=== PATIENT | female | born 1955 | race Caucasian/White ===

== ENCOUNTER 2017-11-11 12:16 | Emergency (ER) | payer OTHER ==
[2017-11-11] MEDS ORDERED: NYSTATIN 100,000UNIT/GM CREAM 30 GM TUBE TOPICAL STA (12:52)
--- NOTE | 2017-11-11 12:59 | ED ---
Psych HPI - General Chief Complaint: Psychiatric Symptoms Stated Complaint: MENTAL HEALTH Time Seen by Provider: 11/11/17 12:42 Source: patient Mode of arrival: EMS - History of Present Illness Initial Comments: 62-year-old female patient presents to the emergency department today with complaints of racing thoughts. States that she has been feeling like she wants drink alcohol. States that she is a recovering alcoholic, last drink was 2016. She states that over the last week she has been constantly thinking about drinking. She states that all of her close contacts drink alcohol and she feels left out. She states that she needs help to get her mind right. She denies any suicidal or homicidal ideation. She denies any hallucinations. States she is sleeping well. She states that overall she feels well however she does have a rash to the area between her breasts. She states that this started when she started wearing a bra. She states that the area is burning however it is not pruritic. Patient denies any recent fever, chills, shortness breath, chest pain, abdominal pain, nausea, vomiting, diarrhea, constipation, back pain, numbness, tingling, dizziness, weakness, hematuria, dysuria, urinary urgency, urinary frequency, headache, visual changes, or any other complaints. - Related Data Home Medications Medication Instructions Recorded Confirmed Desvenlafaxine Succinate [Pristiq 100 mg PO DAILY 01/30/16 11/11/17 ER] risperiDONE [RisperDAL] 2 mg PO HS 01/30/16 11/11/17 Naltrexone HCl [Revia] 50 mg PO DAILY 11/11/17 11/11/17 hydrOXYzine PAMOATE [hydrOXYzine 25 mg PO TID 11/11/17 11/11/17 PAMOATE] Allergies Allergy/AdvReac Type Severity Reaction Status Date / Time aspirin Allergy Rash/Hives Verified 11/11/17 12:34 Penicillins Allergy Rash/Hives Verified 11/11/17 12:34 Review of Systems ROS Statement: Those systems with pertinent positive or pertinent negative responses have been documented in the HPI. ROS Other: All systems not noted in ROS Statement are negative. Past Medical History Past Medical History: Asthma, COPD Additional Past Medical History / Comment(s): back pain History of Any Multi-Drug Resistant Organisms: None Reported Past Surgical History: Back Surgery, Joint Replacement, Orthopedic Surgery Additional Past Surgical History / Comment(s): knee replacement Past Psychological History: Anxiety, Depression Smoking Status: Current every day smoker Past Alcohol Use History: None Reported Past Drug Use History: None Reported General Exam Limitations: no limitations General appearance: alert, in no apparent distress, other (This is a well- developed, well-nourished adult female patient in no acute distress.) Eye exam: Present: normal appearance, PERRL, EOMI. Absent: scleral icterus, conjunctival injection, periorbital swelling ENT exam: Present: normal exam, normal oropharynx, mucous membranes moist Respiratory exam: Present: normal lung sounds bilaterally. Absent: respiratory distress, wheezes, rales, rhonchi, stridor Cardiovascular Exam: Present: regular rate, normal rhythm, normal heart sounds. Absent: systolic murmur, diastolic murmur, rubs, gallop, clicks GI/Abdominal exam: Present: soft, normal bowel sounds. Absent: distended, tenderness, guarding, rebound, rigid Neurological exam: Present: alert, oriented X3, CN II-XII intact Psychiatric exam: Present: normal affect, normal mood Skin exam: Present: warm, dry, intact, normal color, rash (Intertrigo type rash noted between the breasts, skin is erythematous, shiny, odor present.) Course Vital Signs 11/11/17 11/11/17 12:37 16:25 Temperature 97.9 F 97.3 F L Pulse Rate 104 H 91 Respiratory 18 20 Rate Blood Pressure 132/66 135/66 O2 Sat by Pulse 93 L 92 L Oximetry Medical Decision Making - Medical Decision Making 62-year-old female patient presented to the emergency department today for evaluation of racing thoughts and craving alcohol. Patient also reported having a rash between her breasts. Physical examination did reveal intertrigo type rash to the area between her breasts. Patient is alert and oriented 3. Exam is otherwise unremarkable. Labs reviewed and were unremarkable. EKG was normal sinus rhythm. Urinalysis is negative for any acute infection. Drug screen is positive for oxycodone and marijuana. Patient was evaluated by emergency psych services. It is not felt that inpatient psychiatric admission would benefit the patient at this time. Patient does have a follow-up plan in place with her therapist. She is encouraged to attend AA meetings. She is instructed to return here immediately for any new, worsening, or concerning symptoms. She verbalizes understanding and agrees with this plan. - Lab Data Result diagrams: 11/11/17 13:23 11/11/17 13:23 Lab Results 11/11/17 11/11/17 11/11/17 Range/Units 13:23 13:23 13:28 WBC 4.1 (3.8-10.6) k/uL RBC 5.20 (3.80-5.40) m/uL Hgb 15.3 (11.4-16.0) gm/dL Hct 46.8 H (34.0-46.0) % MCV 89.9 (80.0-100.0) fL MCH 29.5 (25.0-35.0) pg MCHC 32.8 (31.0-37.0) g/dL RDW 14.1 (11.5-15.5) % Plt Count 138 L (150-450) k/uL Neutrophils % 69 % Lymphocytes % 19 % Monocytes % 9 % Eosinophils % 1 % Basophils % 1 % Neutrophils # 2.9 (1.3-7.7) k/uL Lymphocytes # 0.8 L (1.0-4.8) k/uL Monocytes # 0.4 (0-1.0) k/uL Eosinophils # 0.0 (0-0.7) k/uL Basophils # 0.0 (0-0.2) k/uL Sodium 135 L (137-145) mmol/L Potassium 4.3 (3.5-5.1) mmol/L Chloride 97 L (98-107) mmol/L Carbon Dioxide 29 (22-30) mmol/L Anion Gap 9 mmol/L BUN 10 (7-17) mg/dL Creatinine 0.79 (0.52-1.04) mg/dL Est GFR (MDRD) Af Amer >60 (>60 ml/min/1.73 sqM) Est GFR (MDRD) Non-Af >60 (>60 ml/min/1.73 sqM) Glucose 124 H (74-99) mg/dL Calcium 8.9 (8.4-10.2) mg/dL Total Bilirubin 0.4 (0.2-1.3) mg/dL AST 28 (14-36) U/L ALT 26 (9-52) U/L Alkaline Phosphatase 78 (38-126) U/L Total Protein 6.9 (6.3-8.2) g/dL Albumin 4.0 (3.5-5.0) g/dL Urine Color Urine Appearance (Clear) Urine pH (5.0-8.0) Ur Specific [place] (1.001-1.035) Urine Protein (Negative) Urine Glucose (UA) (Negative) Urine Ketones (Negative) Urine Blood (Negative) Urine Nitrite (Negative) Urine Bilirubin (Negative) Urine Urobilinogen (<2.0) mg/dL Ur Leukocyte Esterase (Negative) Urine RBC (0-5) /hpf Urine WBC (0-5) /hpf Ur Squamous Epith Cells (0-4) /hpf Urine Bacteria (None) /hpf Urine Mucus (None) /hpf Urine Opiates Screen Not Detected (NotDetected) Ur Oxycodone Screen Detected H (NotDetected) Urine Methadone Screen Not Detected (NotDetected) Ur Propoxyphene Screen Not Detected (NotDetected) Ur Barbiturates Screen Not Detected (NotDetected) U Tricyclic Antidepress Not Detected (NotDetected) Ur Phencyclidine Scrn Not Detected (NotDetected) Ur Amphetamines Screen Not Detected (NotDetected) U Methamphetamines Scrn Not Detected (NotDetected) U Benzodiazepines Scrn Not Detected (NotDetected) Urine Cocaine Screen Not Detected (NotDetected) U Marijuana (THC) Screen Detected H (NotDetected) 11/11/17 Range/Units 13:28 WBC (3.8-10.6) k/uL RBC (3.80-5.40) m/uL Hgb (11.4-16.0) gm/dL Hct (34.0-46.0) % MCV (80.0-100.0) fL MCH (25.0-35.0) pg MCHC (31.0-37.0) g/dL RDW (11.5-15.5) % Plt Count (150-450) k/uL Neutrophils % % Lymphocytes % % Monocytes % % Eosinophils % % Basophils % % Neutrophils # (1.3-7.7) k/uL Lymphocytes # (1.0-4.8) k/uL Monocytes # (0-1.0) k/uL Eosinophils # (0-0.7) k/uL Basophils # (0-0.2) k/uL Sodium (137-145) mmol/L Potassium (3.5-5.1) mmol/L Chloride (98-107) mmol/L Carbon Dioxide (22-30) mmol/L Anion Gap mmol/L BUN (7-17) mg/dL Creatinine (0.52-1.04) mg/dL Est GFR (MDRD) Af Amer (>60 ml/min/1.73 sqM) Est GFR (MDRD) Non-Af (>60 ml/min/1.73 sqM) Glucose (74-99) mg/dL Calcium (8.4-10.2) mg/dL Total Bilirubin (0.2-1.3) mg/dL AST (14-36) U/L ALT (9-52) U/L Alkaline Phosphatase (38-126) U/L Total Protein (6.3-8.2) g/dL Albumin (3.5-5.0) g/dL Urine Color Yellow Urine Appearance Cloudy H (Clear) Urine pH 6.0 (5.0-8.0) Ur Specific [place] 1.015 (1.001-1.035) Urine Protein 1+ H (Negative) Urine Glucose (UA) Negative (Negative) Urine Ketones Negative (Negative) Urine Blood Small H (Negative) Urine Nitrite Negative (Negative) Urine Bilirubin Negative (Negative) Urine Urobilinogen 2.0 (<2.0) mg/dL Ur Leukocyte Esterase Negative (Negative) Urine RBC 22 H (0-5) /hpf Urine WBC 4 (0-5) /hpf Ur Squamous Epith Cells 4 (0-4) /hpf Urine Bacteria Many H (None) /hpf Urine Mucus Moderate H (None) /hpf Urine Opiates Screen (NotDetected) Ur Oxycodone Screen (NotDetected) Urine Methadone Screen (NotDetected) Ur Propoxyphene Screen (NotDetected) Ur Barbiturates Screen (NotDetected) U Tricyclic Antidepress (NotDetected) Ur Phencyclidine Scrn (NotDetected) Ur Amphetamines Screen (NotDetected) U Methamphetamines Scrn (NotDetected) U Benzodiazepines Scrn (NotDetected) Urine Cocaine Screen (NotDetected) U Marijuana (THC) Screen (NotDetected) 11/11/17 13:53 EKG obtained at 1329 shows normal sinus rhythm with possible left atrial [place]. Ventricular rate is 89, MD interval 174, QRS duration 84, QT 388, QTC 472. No evidence of ST elevation or depression. Disposition Clinical Impression: Intertrigo, Psychiatric symptoms Disposition: HOME SELF-CARE Condition: Good Instructions: Skin Yeast Infection (ED), Alcohol Use Disorder (ED) Additional Instructions: Follow-up with your therapist as needed. Consider attending Alcoholics Anonymous meetings. Apply cream to the rash twice daily. Keep area dry. Do not wear your bra. Follow up with your primary care physician for recheck in 1-2 days. Return here immediately for any new, worsening, or concerning symptoms. Referrals: Moises Hanson MD [Primary Care Provider] - 1-2 days Time of Disposition: 16:13
[2017-11-11 13:41] LABS: Basophils % (A) 1 %; Eosinophils % (A) 1 %; HCT 46.8 % (34.0-46.0); HGB 15.3 gm/dL (11.4-16.0); Lymphocytes # (A) 0.8 k/uL (1.0-4.8); Lymphocytes % (A) 19 %; MCH 29.5 pg (25.0-35.0); MCHC 32.8 g/dL (31.0-37.0); MCV 89.9 fL (80.0-100.0); Mean Platelet Volume 7.8; Monocytes # (A) 0.4 k/uL (0-1.0); Monocytes % (A) 9 %; Neutrophils # (A) 2.9 k/uL (1.3-7.7); Neutrophils % (A) 69 %; Platelet Count 138 k/uL (150-450); RDW 14.1 % (11.5-15.5); WBC 4.1 k/uL (3.8-10.6)
[2017-11-11 13:51] LABS: ALT 26 U/L (9-52); AST 28 U/L (14-36); Alkaline Phosphatase 78 U/L (38-126); Anion Gap 9 mmol/L; Blood Urea Nitrogen 10 mg/dL (7-17); Calcium 8.9 mg/dL (8.4-10.2); Carbon Dioxide 29 mmol/L (22-30); Chloride 97 mmol/L (98-107); Glucose 124 mg/dL (74-99); Sodium 135 mmol/L (137-145); Total Bilirubin 0.4 mg/dL (0.2-1.3); Total Protein 6.9 g/dL (6.3-8.2)
[2017-11-11 13:57] LABS: Potassium 4.3 mmol/L (3.5-5.1)
[2017-11-11 14:00] LABS: Appearance,Urine Cloudy (Clear); Bacteria,Urine Many /hpf; Bilirubin,Urine Negative (Negative); Blood,Urine Small (Negative); Color,Urine Yellow; Glucose,Urine (UA) Negative (Negative); Ketones,Urine Negative (Negative); Leukocyte Esterase,Urine Negative (Negative); Mucus,Urine Moderate /hpf; Nitrite,Urine Negative (Negative); Protein,Urine 1+ (Negative); RBC,Urine 22 /hpf (0-5); Specific Gravity,Urine 1.015 (1.001-1.035); Squamous Epithelial Cell,Urine 4 /hpf (0-4); WBC,Urine 4 /hpf (0-5)
[2017-11-11 14:06] LABS: Amphetamine Screen,Urine Not Detected (NotDetected); Barbiturate Screen,Urine Not Detected (NotDetected); Benzodiazepines Screen,Urine Not Detected (NotDetected); Cocaine Screen,Urine Not Detected (NotDetected); Methadone Screen, Urine Not Detected (NotDetected); Opiate Screen,Urine Not Detected (NotDetected); Oxycodone Screen, Urine Detected (NotDetected); Phencyclidine Screen,Urine Not Detected (NotDetected); Tricyclic Antidepressant,Urine Not Detected (NotDetected); Urn Cannabinoid Scrn Detected (NotDetected)
[2017-11-11 16:26] VITALS: BP 135/66; PULSE 91; RESP 20; TEMP 97.3
== END 2017-11-11 16:26 | disposition home or self-care (01) ==
LOC: EC 12:16
DX: L30.4 Erythema intertrigo (principal); R46.89 Other symptoms and signs involving appearance and behavior; F10.239 Alcohol dependence with withdrawal, unspecified; F32.9 Major depressive disorder, single episode, unspecified; F41.9 Anxiety disorder, unspecified; F17.200 Nicotine dependence, unspecified, uncomplicated; Z79.899 Other long term (current) drug therapy; Z88.0 Allergy status to penicillin; Z88.6 Allergy status to analgesic agent
CPT/HCPCS: 36415; 80053; 80306; 81001; 82075; 85025; 93005; 99284

== ENCOUNTER → 2018-05-13 | Outpatient (CLI) | payer OTHER ==
[2018-05-13 11:39] LABS: Basophils # (A) 0.1 k/uL (0-0.2); Basophils % (A) 1 %; Eosinophils # (A) 0.1 k/uL (0-0.7); Eosinophils % (A) 2 %; HCT 43.6 % (34.0-46.0); HGB 14.1 gm/dL (11.4-16.0); Lymphocytes # (A) 1.7 k/uL (1.0-4.8); Lymphocytes % (A) 23 %; MCH 29.5 pg (25.0-35.0); MCHC 32.3 g/dL (31.0-37.0); MCV 91.4 fL (80.0-100.0); Mean Platelet Volume 7.3; Monocytes # (A) 0.4 k/uL (0-1.0); Monocytes % (A) 5 %; Neutrophils # (A) 5.1 k/uL (1.3-7.7); Neutrophils % (A) 69 %; Platelet Count 186 k/uL (150-450); RBC 4.78 m/uL (3.80-5.40); RDW 15.3 % (11.5-15.5); WBC 7.5 k/uL (3.8-10.6)
[2018-05-13 11:53] LABS: ALT 20 U/L (9-52); AST 21 U/L (14-36); Albumin 3.8 g/dL (3.5-5.0); Alkaline Phosphatase 69 U/L (38-126); Anion Gap 9 mmol/L; Blood Urea Nitrogen 18 mg/dL (7-17); Calcium 8.8 mg/dL (8.4-10.2); Carbon Dioxide 26 mmol/L (22-30); Chloride 108 mmol/L (98-107); Cholesterol 172 mg/dL (<200); Glucose 90 mg/dL (74-99); HDL Cholesterol 43 mg/dL (40-60); LDL Cholesterol,Calculated 115 mg/dL (0-99); Potassium 4.8 mmol/L (3.5-5.1); Sodium 143 mmol/L (137-145); Total Bilirubin 0.4 mg/dL (0.2-1.3); Total Protein 6.3 g/dL (6.3-8.2); Triglycerides 69 mg/dL (<150)
== END | disposition home or self-care (01) ==
LOC: LABWHC1 11:17
PROVIDERS: ATTEND Physician Assistant
DX: Z00.00 Encounter for general adult medical examination without abnormal findings (principal)
CPT/HCPCS: 36415; 80053; 80061; 85025

== ENCOUNTER 2018-05-15 13:44 | Emergency (ER) | payer OTHER ==
[2018-05-15 13:54] VITALS: TEMP 98.1
--- NOTE | 2018-05-15 15:38 | ED ---
General Adult HPI - General Chief complaint: Psychiatric Symptoms Stated complaint: Mental Health Time Seen by Provider: 05/15/18 13:50 Source: patient, RN notes reviewed Mode of arrival: ambulatory Limitations: no limitations - History of Present Illness Initial comments: This is a 62-year-old female who came into the emergency department because her counselor wanted to have her evaluated. Patient states the last 2 days she's been more depressed than normal. Patient states it's because she got an argument with her roommate. Patient states her medications haven't been working well up until that point now that she's not getting along with the roommate she has been more depressed. Patient denies any suicidal or homicidal ideations. Patient states he she has no physical complaints today. Patient denies headache patient denies chest pain difficulty breathing shortest breath. Patient denies any recent fever chills or cough. Patient denies abdominal pain patient denies nausea vomiting diarrhea. - Related Data Home Medications Medication Instructions Recorded Confirmed Desvenlafaxine Succinate [Pristiq 100 mg PO DAILY 01/30/16 05/15/18 ER] Naltrexone HCl [Revia] 50 mg PO DAILY 11/11/17 05/15/18 hydrOXYzine PAMOATE 25 mg PO TID 11/11/17 05/15/18 Cyclobenzaprine [Flexeril] 10 mg PO DAILY PRN 05/15/18 05/15/18 Ibuprofen [Motrin] 800 mg PO TID 05/15/18 05/15/18 risperiDONE [RisperDAL] 4 mg PO HS 05/15/18 05/15/18 traZODone HCL [Desyrel] 200 mg PO HS 05/15/18 05/15/18 Allergies Allergy/AdvReac Type Severity Reaction Status Date / Time aspirin Allergy Rash/Hives Verified 05/15/18 13:54 Penicillins Allergy Rash/Hives Verified 05/15/18 13:54 Review of Systems ROS Statement: Those systems with pertinent positive or pertinent negative responses have been documented in the HPI. ROS Other: All systems not noted in ROS Statement are negative. Past Medical History Past Medical History: Asthma, COPD Additional Past Medical History / Comment(s): back pain History of Any Multi-Drug Resistant Organisms: None Reported Past Surgical History: Back Surgery, Joint Replacement, Orthopedic Surgery Additional Past Surgical History / Comment(s): knee replacement Past Psychological History: Anxiety, Depression Smoking Status: Current every day smoker Past Alcohol Use History: None Reported Past Drug Use History: None Reported General Exam - General Exam Comments Initial Comments: GENERAL: Patient is well-developed and well-nourished. Patient is nontoxic and well- hydrated and is in no acute distress. ENT: Neck is soft and supple. No significant lymphadenopathy is noted. Oropharynx is clear. Moist mucous membranes. Neck has full range of motion without eliciting any pain. There is no thyroid enlargement and no masses were felt. EYES: The sclera were anicteric and conjunctiva were pink and moist. Extraocular movements were intact and pupils were equal round and reactive to light. Eyelids were unremarkable. PULMONARY: Unlabored respirations. Good breath sounds bilaterally. No audible rales rhonchi or wheezing was noted. CARDIOVASCULAR: There is a regular rate and rhythm without any murmurs gallops or rubs. Femoral pulses are equal bilaterally ABDOMEN: Soft and nontender with normal bowel sounds. No palpable organomegaly was noted. There is no palpable pulsatile mass. SKIN: Skin is clear with no lesions or rashes and otherwise unremarkable. NEUROLOGIC: Patient is alert and oriented x3. Cranial nerves II through XII are grossly intact. Motor and sensory are also intact. Normal speech, volume and content. Symmetrical smile. Cerebellar exam grossly intact. MUSCULOSKELETAL: Normal extremities with adequate strength and full range of motion. No lower extremity swelling or edema. No calf tenderness. LYMPHATICS: No significant lymphadenopathy is noted PSYCHIATRIC: Patient states she's been a little more depressed because of an argument she had with her roommate recently. Limitations: no limitations Course Vital Signs 05/15/18 13:51 Temperature 98.1 F Pulse Rate 78 Respiratory 16 Rate Blood Pressure 151/76 O2 Sat by Pulse 96 Oximetry Medical Decision Making - Medical Decision Making patient was evaluated by EPS and found to be safe to go home with a follow-up at [facility]. - Lab Data Lab Results 05/15/18 Range/Units 15:49 Urine Opiates Screen Not Detected (NotDetected) Ur Oxycodone Screen Not Detected (NotDetected) Urine Methadone Screen Not Detected (NotDetected) Ur Propoxyphene Screen Not Detected (NotDetected) Ur Barbiturates Screen Not Detected (NotDetected) U Tricyclic Antidepress Not Detected (NotDetected) Ur Phencyclidine Scrn Not Detected (NotDetected) Ur Amphetamines Screen Not Detected (NotDetected) U Methamphetamines Scrn Not Detected (NotDetected) U Benzodiazepines Scrn Not Detected (NotDetected) Urine Cocaine Screen Not Detected (NotDetected) U Marijuana (THC) Screen Detected H (NotDetected) Disposition Clinical Impression: Situational depression Disposition: HOME SELF-CARE Condition: Good Instructions: Depression (ED) Is patient prescribed a controlled substance at d/c from ED?: No Referrals: None,Stated [Primary Care Provider] - 1-2 days Time of Disposition: 17:23
[2018-05-15 16:16] LABS: Amphetamine Screen,Urine Not Detected (NotDetected); Barbiturate Screen,Urine Not Detected (NotDetected); Benzodiazepines Screen,Urine Not Detected (NotDetected); Cocaine Screen,Urine Not Detected (NotDetected); Methadone Screen, Urine Not Detected (NotDetected); Opiate Screen,Urine Not Detected (NotDetected); Oxycodone Screen, Urine Not Detected (NotDetected); Phencyclidine Screen,Urine Not Detected (NotDetected); Tricyclic Antidepressant,Urine Not Detected (NotDetected); Urn Cannabinoid Scrn Detected (NotDetected)
[2018-05-15 17:42] VITALS: BP 182/76; PULSE 71; RESP 18
== END 2018-05-15 17:42 | disposition home or self-care (01) ==
LOC: EC 13:44
DX: F43.21 Adjustment disorder with depressed mood (principal); F41.9 Anxiety disorder, unspecified; F17.200 Nicotine dependence, unspecified, uncomplicated; Z79.1 Long term (current) use of non-steroidal anti-inflammatories (NSAID); Z79.899 Other long term (current) drug therapy; Z88.0 Allergy status to penicillin; Z88.6 Allergy status to analgesic agent
CPT/HCPCS: 80306; 82075; 99284

== ENCOUNTER 2020-08-07 08:41 | Day surgery (SDC) | payer MEDICARE, OTHER ==
[2020-08-05 13:15] VITALS: BMI 30.1
--- NOTE | 2020-08-07 06:46 | P.GSHP ---
History of Present Illness H&P Date: 08/07/20 CHIEF COMPLAINT: Colon screen HISTORY OF PRESENT ILLNESS: The patient is a 64-year-old female who presents for colon screen. Lower endoscopy was offered for further evaluation and management. PAST MEDICAL HISTORY: Please see list. PAST SURGICAL HISTORY: Please see list. MEDICATIONS: Please see list. ALLERGIES: Please see list. SOCIAL HISTORY: No illicit drug use FAMILY HISTORY: No reports of Crohn disease or ulcerative colitis. REVIEW OF ORGAN SYSTEMS: CONSTITUTIONAL: No reports of fevers or chills. PHYSICAL EXAM: VITAL SIGNS: Stable GENERAL: Well-developed pleasant in no acute distress. HEENT: No scleral icterus. Extraocular movements grossly intact. Moist buccal mucosa. NECK: Supple without lymphadenopathy. CHEST: Unlabored respirations. Equal bilateral excursions. CARDIOVASCULAR: Regular rate and rhythm. Distal 2+ pulses. ABDOMEN: Soft, nontender, nondistended. MUSCULOSKELETAL: No clubbing, cyanosis, or edema. ASSESSMENT: 1. Colon screen. PLAN: 1. Recommend proceeding with a lower endoscopy Past Medical History Past Medical History: Asthma, COPD, GERD/Reflux Additional Past Medical History / Comment(s): abd. pain intermittently & diarrhea since April, back pain History of Any Multi-Drug Resistant Organisms: None Reported Past Surgical History: Back Surgery, Joint Replacement, Orthopedic Surgery Additional Past Surgical History / Comment(s): left knee replacement, back surg. x2, cervical fusion Past Anesthesia/Blood Transfusion Reactions: Previous Problems w/ Anesthesia Additional Past Anesthesia/Blood Transfusion Reaction / Comment(s): "woke up swinging after knee replacement" Smoking Status: Current every day smoker Medications and Allergies Home Medications Medication Instructions Recorded Confirmed Type Naltrexone HCl [Revia] 50 mg PO DAILY 11/11/17 08/05/20 History risperiDONE [RisperDAL] 3 mg PO HS 05/15/18 08/05/20 History traZODone HCL [Desyrel] 200 mg PO HS 05/15/18 08/05/20 History FLUoxetine HCL [PROzac] 40 mg PO DAILY 08/05/20 08/05/20 History Ipratropium [place] [Atrovent Hfa] 2 puff INHALATION QID PRN 08/05/20 08/05/20 History Ipratropium-Albuterol Nebulize 1 neb INHALATION QID 08/05/20 08/05/20 History [Duoneb 0.5 mg-3 mg/3 ml Soln] Omeprazole [PriLOSEC] 20 mg PO AC-BRKFST 08/05/20 08/05/20 History Allergies Allergy/AdvReac Type Severity Reaction Status Date / Time aspirin Allergy Rash/Hives Verified 08/05/20 12:46 Penicillins Allergy Rash/Hives Verified 08/05/20 12:46
[~2020-08-07 08:41] MED LIST: LACTATED RINGERS 1,000 ML IV SCH
[2020-08-07 09:13] VITALS: TEMP 97
[2020-08-07] MEDS ORDERED: LIDOCAINE 1% (10MG/ML) FOR IV START INTRADERMA ONE (09:13)
[2020-08-07] MEDS ORDERED: PROPOFOL 10 MG/ML 20 ML VIAL IV ONE (10:08)
--- NOTE | 2020-08-07 10:50 | P.PCN ---
Date of Procedure: 08/07/20 Description of Procedure: PREOPERATIVE DIAGNOSIS: Colonoscopy screening POSTOPERATIVE DIAGNOSIS: Rectal bleeding Tubular adenoma rectum Tubular adenoma transverse colon OPERATION: Colonoscopy to the ileocecal valve and appendiceal orifice, cecum Colonoscopy with multiple hot snare polypectomies SURGEON: Samara Swan MD. ANESTHESIA: MAC. INDICATIONS: The patient is an 64-year-old female who presents for first colonoscopy exam. Upon discussion, patient reports active rectal bleeding. Benefits and risks were described and informed consent was obtained. DESCRIPTION OF PROCEDURE: The patient had undergone Suprep. He had been brought into the operating room and laid in the left lateral decubitus position. After adequate intravenous sedation, the rectum was examined with 2% lidocaine jelly. Blood-tinged stool was found upon withdrawal. No external hemorrhoids were encountered. The rectal tone was within normal limits. No lesions were palpated in the rectal vault. An Olympus colonoscope was advanced until the cecum, ileocecal valve and appendiceal orifice were clearly viewed. The prep was fair. No sigmoid diverticulosis was encountered. Multiple colonic polyps were found and snare polypectomy. No evidence of focal colitis was found. Retroflexion of the scope demonstrated no internal hemorrhoids with bleeding. The colon was desufflated. The patient had tolerated the procedure well. Withdrawal time was over 6 minutes. FINDINGS: Aronchick preparation quality scale 3 (1-5) First blood-tinged stool found without source of bleed No internal hemorrhoids No external hemorrhoids No arteriovenous malformations. No sigmoid diverticulosis Removal of 3 polyps : - Snare polypectomy at mid transverse colon and, 5 mm tubulovillous adenoma polyp. - Snare polypectomy at distal transverse colon, 8 mm flat villous adenoma polyp. - Snare polypectomy 10 cm, rectal, 5 mm flat villous adenoma polyp. No focal colitis. RECOMMENDATIONS: Given severity of tubular adenomas, recommend repeat colonoscopy 2 years, 2021 Plan - Discharge Summary Discharge Rx Participant: No New Discharge Prescriptions: Continue Naltrexone HCl [Revia] 50 mg PO DAILY traZODone HCL [Desyrel] 200 mg PO HS risperiDONE [RisperDAL] 3 mg PO HS Omeprazole [PriLOSEC] 20 mg PO AC-BRKFST Ipratropium [place] [Atrovent Hfa] 2 puff INHALATION QID PRN PRN Reason: Dyspnea FLUoxetine HCL [PROzac] 40 mg PO DAILY Ipratropium-Albuterol Nebulize [Duoneb 0.5 mg-3 mg/3 ml Soln] 1 neb INHALATION QID Discharge Medication List Naltrexone HCl [Revia] 50 mg PO DAILY 11/11/17 [History] risperiDONE [RisperDAL] 3 mg PO HS 05/15/18 [History] traZODone HCL [Desyrel] 200 mg PO HS 05/15/18 [History] FLUoxetine HCL [PROzac] 40 mg PO DAILY 08/05/20 [History] Ipratropium [place] [Atrovent Hfa] 2 puff INHALATION QID PRN 08/05/20 [History] Ipratropium-Albuterol Nebulize [Duoneb 0.5 mg-3 mg/3 ml Soln] 1 neb INHALATION QID 08/05/20 [History] Omeprazole [PriLOSEC] 20 mg PO AC-BRKFST 08/05/20 [History] Follow up Appointment(s)/Referral(s): Samara Swan MD [STAFF PHYSICIAN] - 08/19/20 Patient Instructions/Handouts: Rectal Bleeding (DC), Colorectal Polyps (DC) Activity/Diet/Wound Care/Special Instructions: Repeat colonoscopy 2 years, 2021. Will need at least 2 day colon prep Discharge Disposition: HOME SELF-CARE
[2020-08-07 10:59] VITALS: BP 122/84; PULSE 92; RESP 18
== END 2020-08-07 11:30 | disposition home or self-care (01) ==
LOC: ORWHC2ENDO 08:41
PROVIDERS: ATTEND Surgery Plastic and Reconstructive Surgery
DX: Z12.11 Encounter for screening for malignant neoplasm of colon (principal); D12.3 Benign neoplasm of transverse colon; K62.1 Rectal polyp; J44.9 Chronic obstructive pulmonary disease, unspecified; F17.200 Nicotine dependence, unspecified, uncomplicated; K21.9 Gastro-esophageal reflux disease without esophagitis; Z96.652 Presence of left artificial knee joint; Z79.899 Other long term (current) drug therapy; Z88.0 Allergy status to penicillin; Z88.6 Allergy status to analgesic agent; Z98.1 Arthrodesis status
CPT/HCPCS: 88305; 45385; J2704

== ENCOUNTER 2021-05-21 13:38 | Emergency (ER) | payer MEDICARE, OTHER ==
[2021-05-21 14:21] VITALS: TEMP 97.8
[2021-05-21] MEDS ORDERED: ONDANSETRON 4 MG/2 ML VIAL IVP STA ×2 (15:18→15:30)
[2021-05-21] MEDS ORDERED: PANTOPRAZOLE 40 MG/10 ML VIAL IVP STA (15:18)
[2021-05-21] MEDS ORDERED: SODIUM CHLORIDE 0.9% 1,000 ML IV STA (15:18)
[2021-05-21] MEDS ORDERED: HYDROmorphone 1 MG/ML 1 ML SYRINGE IVP STA (15:23)
[2021-05-21] MEDS ORDERED: KETOROLAC 15 MG/ML 1 ML VIAL ONE (15:28)
[2021-05-21 15:38] LABS: Basophils # (A) 0.1 k/uL (0-0.2); Basophils % (A) 1 %; Eosinophils # (A) 0.1 k/uL (0-0.7); Eosinophils % (A) 1 %; HGB 14.7 gm/dL (11.4-16.0); Lymphocytes # (A) 1.1 k/uL (1.0-4.8); Lymphocytes % (A) 15 %; MCH 28.1 pg (25.0-35.0); MCHC 31.9 g/dL (31.0-37.0); Monocytes # (A) 0.4 k/uL (0-1.0); Monocytes % (A) 6 %; Neutrophils # (A) 5.6 k/uL (1.3-7.7); Neutrophils % (A) 77 %; Platelet Count 141 k/uL (150-450); RBC 5.22 m/uL (3.80-5.40); WBC 7.3 k/uL (3.8-10.6)
[2021-05-21 15:40] LABS: Appearance,Urine Clear (Clear); Bacteria,Urine Occasional /hpf; Bilirubin,Urine Negative (Negative); Blood,Urine Moderate (Negative); Color,Urine Yellow; Glucose,Urine (UA) Negative (Negative); Hyaline Casts,Urine 1 /lpf (0-2); Ketones,Urine Negative (Negative); Leukocyte Esterase,Urine Negative (Negative); Mucus,Urine Rare /hpf; Nitrite,Urine Negative (Negative); Protein,Urine Negative (Negative); RBC,Urine 15 /hpf (0-5); Specific Gravity,Urine 1.013 (1.001-1.035); Squamous Epithelial Cell,Urine <1 /hpf (0-4); Urobilinogen,Urine <2.0 mg/dL (<2.0); WBC,Urine 1 /hpf (0-5)
[2021-05-21 15:49] LABS: ALT 10 U/L (4-34); AST 22 U/L (14-36); African American GFR (CKD) >90 (>60 ml/min/1.73 sqM); Alkaline Phosphatase 97 U/L (38-126); Amylase 63 U/L (30-110); Anion Gap 8 mmol/L; Blood Urea Nitrogen 5 mg/dL (7-17); Calcium 8.9 mg/dL (8.4-10.2); Carbon Dioxide 24 mmol/L (22-30); Chloride 107 mmol/L (98-107); Glucose 116 mg/dL (74-99); Lipase 126 U/L (23-300); Non-African American GFR(CKD) 90 (>60 ml/min/1.73 sqM); Sodium 139 mmol/L (137-145); Total Bilirubin 0.4 mg/dL (0.2-1.3); Total Protein 6.7 g/dL (6.3-8.2)
--- NOTE | 2021-05-21 15:50 | ED ---
Abdominal Pain HPI - General Chief Complaint: Abdominal Pain Stated Complaint: ABD pain Time Seen by Provider: 05/21/21 15:05 Source: patient Mode of arrival: ambulatory Limitations: no limitations - History of Present Illness Initial Comments: 65-year-old male presents to emergency Department with the chief complaint of abdominal pain. Patient reports she does have history of gallstones ever determined by ultrasound. States she has been dealing with this problem for the past 2 years that is located right upper quadrant area without radiation. St ates the pain is always postprandial. She does report intermittent diarrhea over the past several months with some nausea but no vomiting. States she spoke to a surgeon, Dr. Fair, who did not recommend cholecystectomy at this time. States she has noticed some gross hematuria earlier today which is since mostly resolved. - Related Data Home Medications Medication Instructions Recorded Confirmed Naltrexone HCl [Revia] 50 mg PO DAILY 11/11/17 05/21/21 traZODone HCL [Desyrel] 200 mg PO HS 05/15/18 05/21/21 FLUoxetine HCL [PROzac] 40 mg PO BID 08/05/20 05/21/21 risperiDONE 3 mg PO HS 05/21/21 05/21/21 Allergies Allergy/AdvReac Type Severity Reaction Status Date / Time aspirin Allergy Rash/Hives Verified 05/21/21 17:25 Penicillins Allergy Rash/Hives Verified 05/21/21 17:25 Review of Systems ROS Statement: Those systems with pertinent positive or pertinent negative responses have been documented in the HPI. ROS Other: All systems not noted in ROS Statement are negative. Past Medical History Past Medical History: Asthma, COPD, GERD/Reflux Additional Past Medical History / Comment(s): abd. pain intermittently & diarrhea since April, back pain History of Any Multi-Drug Resistant Organisms: None Reported Past Surgical History: Back Surgery, Joint Replacement, Orthopedic Surgery Additional Past Surgical History / Comment(s): left knee replacement, back surg. x2, cervical fusion Past Anesthesia/Blood Transfusion Reactions: Previous Problems w/ Anesthesia Additional Past Anesthesia/Blood Transfusion Reaction / Comment(s): "woke up swinging after knee replacement" Past Psychological History: Anxiety, Depression Smoking Status: Current every day smoker Past Alcohol Use History: None Reported Past Drug Use History: None Reported General Exam Limitations: no limitations General appearance: alert, in no apparent distress, obese Head exam: Present: atraumatic, normocephalic, normal inspection Eye exam: Present: normal appearance, PERRL, EOMI Pupils: Present: normal accommodation ENT exam: Present: normal exam, normal oropharynx, mucous membranes moist Neck exam: Present: normal inspection, full ROM. Absent: tenderness, lymphadenopathy Respiratory exam: Present: normal lung sounds bilaterally, wheezes (Slight, diffuse wheezing bilaterally.). Absent: respiratory distress, rales, rhonchi, stridor, chest wall tenderness, accessory muscle use Cardiovascular Exam: Present: regular rate, normal rhythm, normal heart sounds. Absent: systolic murmur GI/Abdominal exam: Present: soft, tenderness (Positive Jones sign). Absent: distended, guarding Extremities exam: Present: normal inspection, full ROM, normal capillary refill. Absent: tenderness, pedal edema, joint swelling Back exam: Present: normal inspection, full ROM, CVA tenderness (R) (Mild). Absent: tenderness, CVA tenderness (L) Neurological exam: Present: alert, oriented X3 Psychiatric exam: Present: normal affect, normal mood Skin exam: Present: warm, dry, intact, normal color Course Vital Signs 05/21/21 14:17 Temperature 97.8 F Pulse Rate 88 Respiratory 20 Rate Blood Pressure 162/74 O2 Sat by Pulse 95 Oximetry Medical Decision Making - Medical Decision Making 65-year-old male presents to emergency Department with the chief complaint of abdominal pain. On physical examination, positive Jones sign. Laboratory work is unremarkable. Right upper quadrant ultrasound reveals cholelithiasis with dilated common bile duct at 1.1 cm. I spoke to Dr. Pineda who recommended the patient can be seen in his office. Return parameters were discussed patient is understanding and agreeable. Advised to eat a low-fat diet. Will be discharged with Zofran. Case discussed with Dr. Munoz. - Lab Data Result diagrams: 05/21/21 15:30 05/21/21 15:30 Lab Results 05/21/21 05/21/21 05/21/21 Range/Units 15:30 15:30 15:30 WBC 7.3 (3.8-10.6) k/uL RBC 5.22 (3.80-5.40) m/uL Hgb 14.7 (11.4-16.0) gm/dL Hct 46.0 (34.0-46.0) % MCV 88.0 (80.0-100.0) fL MCH 28.1 (25.0-35.0) pg MCHC 31.9 (31.0-37.0) g/dL RDW 15.0 (11.5-15.5) % Plt Count 141 L (150-450) k/uL MPV 8.0 Neutrophils % 77 % Lymphocytes % 15 % Monocytes % 6 % Eosinophils % 1 % Basophils % 1 % Neutrophils # 5.6 (1.3-7.7) k/uL Lymphocytes # 1.1 (1.0-4.8) k/uL Monocytes # 0.4 (0-1.0) k/uL Eosinophils # 0.1 (0-0.7) k/uL Basophils # 0.1 (0-0.2) k/uL Sodium 139 (137-145) mmol/L Potassium 4.0 (3.5-5.1) mmol/L Chloride 107 (98-107) mmol/L Carbon Dioxide 24 (22-30) mmol/L Anion Gap 8 mmol/L BUN 5 L (7-17) mg/dL Creatinine 0.70 (0.52-1.04) mg/dL Est GFR (CKD-EPI)AfAm >90 (>60 ml/min/1.73 sqM) Est GFR (CKD-EPI)NonAf 90 (>60 ml/min/1.73 sqM) Glucose 116 H (74-99) mg/dL Calcium 8.9 (8.4-10.2) mg/dL Total Bilirubin 0.4 (0.2-1.3) mg/dL AST 22 (14-36) U/L ALT 10 (4-34) U/L Alkaline Phosphatase 97 (38-126) U/L Total Protein 6.7 (6.3-8.2) g/dL Albumin 4.0 (3.5-5.0) g/dL Amylase 63 (30-110) U/L Lipase 126 (23-300) U/L Urine Color Yellow Urine Appearance Clear (Clear) Urine pH 6.0 (5.0-8.0) Ur Specific [place] 1.013 (1.001-1.035) Urine Protein Negative (Negative) Urine Glucose (UA) Negative (Negative) Urine Ketones Negative (Negative) Urine Blood Moderate H (Negative) Urine Nitrite Negative (Negative) Urine Bilirubin Negative (Negative) Urine Urobilinogen <2.0 (<2.0) mg/dL Ur Leukocyte Esterase Negative (Negative) Urine RBC 15 H (0-5) /hpf Urine WBC 1 (0-5) /hpf Ur Squamous Epith Cells <1 (0-4) /hpf Urine Bacteria Occasional H (None) /hpf Hyaline Casts 1 (0-2) /lpf Urine Mucus Rare H (None) /hpf Disposition Clinical Impression: Biliary colic Disposition: HOME SELF-CARE Condition: Stable Instructions (If sedation given, give patient instructions): Biliary Colic (ED), Low Fat Diet (ED) Additional Instructions: Follow-up with Dr. Herbert. Eat a low-fat diet. Return to emergency department if symptoms worsen. Is patient prescribed a controlled substance at d/c from ED?: No Referrals: Konrad Monsalve DO [Primary Care Provider] - 1-2 days Zac Tejeda MD [Medical Doctor] - 1-2 days Time of Disposition: 17:38
--- NOTE | 2021-05-21 16:44 | US ---
EXAMINATION TYPE: US gallbladder DATE OF EXAM: 05/21/2021 COMPARISON: NONE CLINICAL HISTORY: ruq tenderness. RUQ pain since 2019 EXAM MEASUREMENTS: Liver Length: 15.3 cm Gallbladder Wall: 0.3 cm CBD: 1.1 cm Right Kidney: 9.7 x 3.7 x 3.6 cm bowel gas limits exam Pancreas: wnl Liver: heterogeneous and difficult to penetrate findings can be compatible with moderate fatty infil tration. Gallbladder: multiple stones, 1.4cm stone within fundal portion, borderline thickness Evidence for sonographic Jones's sign: YES CBD: dilated with no obvious obstruction Right Kidney: wnl IMPRESSION: 1. Cholelithiasis. There is a sonographic Jones sign, correlate for acute cholecystitis. 2. Common bile duct is dilated at 1.1 cm. Normal less than 0.7 cm. 3. Moderate fatty infiltration liver.
[2021-05-21 18:05] VITALS: BP 130/72; PULSE 60; RESP 16
== END 2021-05-21 18:04 | disposition home or self-care (01) ==
LOC: EC 13:38
DX: K80.50 Calculus of bile duct without cholangitis or cholecystitis without obstruction (principal); E66.9 Obesity, unspecified; J44.9 Chronic obstructive pulmonary disease, unspecified; K21.9 Gastro-esophageal reflux disease without esophagitis; F32.9 Major depressive disorder, single episode, unspecified; F41.9 Anxiety disorder, unspecified; F17.200 Nicotine dependence, unspecified, uncomplicated; Z88.0 Allergy status to penicillin; Z88.6 Allergy status to analgesic agent; Z68.32 Body mass index [BMI] 32.0-32.9, adult
CPT/HCPCS: 36415; 80053; 82150; 83690; 85025; 81001; 76705; 96374; 96375; 96361; 99284; J2405; J1170; J1885; C9113

== ENCOUNTER 2021-06-01 07:33 | Day surgery (SDC) | payer MEDICARE, OTHER ==
[2021-05-28 09:53] VITALS: BMI 32.8
[~2021-06-01 07:33] MED LIST changes: +ACETAMINOPHEN TAB 500 MG TAB PO PRN; +DEXAMETHASONE SOD PHOSPHATE 4 MG/ML 1 ML VIAL IV ONE; +HEPARIN SODIUM,PORCINE/PF 5,000 UNIT/0.5 ML SYRINGE SQ PRN; +HYDROmorphone 0.5 MG/0.5 ML SYRINGE IVP PRN; +LIDOCAINE 1% (10MG/ML) FOR IV START INTRADERMA PRN; +MIDAZOLAM 2 MG/2 ML VIAL IV PRN; +ONDANSETRON 4 MG/2 ML VIAL IVP ONE; +ONDANSETRON 4 MG/2 ML VIAL IVP PRN; +SCOPOLAMINE 1.5MG/72HR PATCH TRANSDERM ONE; +fentaNYL (PF) 50 MCG/ML 2 ML AMP IVP PRN
--- NOTE | 2021-06-01 08:22 | P.GSHP ---
History of Present Illness H&P Date: 06/01/21 Chief Complaint: Right upper quadrant pain This is a 65-year-old female who presents today for laparoscopic cholecystectomy. Patient with right upper quadrant pain. Her recent ultrasound shows gallstones. Past Medical History Past Medical History: Asthma, COPD, GERD/Reflux Additional Past Medical History / Comment(s): abd. pain intermittently & diarrhea since April, back pain History of Any Multi-Drug Resistant Organisms: None Reported Past Surgical History: Back Surgery, Joint Replacement, Orthopedic Surgery Additional Past Surgical History / Comment(s): left knee replacement, back surg. x2, cervical fusion Past Anesthesia/Blood Transfusion Reactions: Previous Problems w/ Anesthesia Additional Past Anesthesia/Blood Transfusion Reaction / Comment(s): "woke up swinging after knee replacement" Smoking Status: Current every day smoker - Past Family History Mother Family Medical History: Cancer Medications and Allergies Home Medications Medication Instructions Recorded Confirmed Type traZODone HCL [Desyrel] 200 mg PO HS 05/15/18 05/28/21 History FLUoxetine HCL [PROzac] 40 mg PO BID 08/05/20 05/28/21 History Ondansetron Odt [Zofran Odt] 4 mg PO Q8HR PRN #20 tab 05/21/21 05/28/21 Rx risperiDONE 3 mg PO HS 05/21/21 05/28/21 History Ketorolac 0.5% Ophth Soln [Acular] 1 drops LEFT EYE BID 05/28/21 05/28/21 History Moxifloxacin HCl [Moxifloxacin] 1 drop LEFT EYE QID 05/28/21 05/28/21 History Allergies Allergy/AdvReac Type Severity Reaction Status Date / Time aspirin Allergy Rash/Hives Verified 06/01/21 07:57 latex Allergy Rash/Hives Verified 06/01/21 07:57 Penicillins Allergy Rash/Hives Verified 06/01/21 07:57 Surgical - Exam Vital Signs Temp Pulse Resp BP Pulse Ox 98.8 F 120 H 16 162/92 97 06/01/21 07:58 06/01/21 07:58 06/01/21 07:58 06/01/21 07:58 06/01/21 07:58 - General well developed, well nourished, no distress - Eyes PERRL - ENT normal pinna - Neck no masses - Respiratory normal expansion - Cardiovascular Rhythm: regular - Abdomen Abdomen: soft Assessment and Plan Assessment: Cholelithiasis. We'll perform laparoscopic cholecystectomy
[2021-06-01] MEDS ORDERED: GLYCOPYRROLATE 0.2 MG/ML 2 ML VIAL ONE (08:40)
[2021-06-01] MEDS ORDERED: NEOSTIGMINE 1 MG/ML 10 ML VIAL ONE (08:40)
[2021-06-01] MEDS ORDERED: PROPOFOL 10 MG/ML 20 ML VIAL IV ONE (08:40)
[2021-06-01] MEDS ORDERED: HYDROmorphone (PF) 1 MG/ML ONE (08:40)
[2021-06-01] MEDS ORDERED: MIDAZOLAM 2 MG/2 ML VIAL ONE (08:40)
[2021-06-01] MEDS ORDERED: fentaNYL (PF) 50 MCG/ML 2 ML AMP ONE (08:40)
[2021-06-01] MEDS ORDERED: KETOROLAC 15 MG/ML 1 ML VIAL ONE (08:40)
[2021-06-01] MEDS ORDERED: LIDOCAINE 1% INJ 10MG/ML (20 ML MDV) ONE (08:40)
[2021-06-01] MEDS ORDERED: ROCURONIUM 10 MG/ML (5 ML VIAL) IV ONE (08:40)
[2021-06-01] MEDS ORDERED: SUCCINYLCHOLINE CHLORIDE 100 MG/5 ML SYR IV ONE (08:40)
[2021-06-01] MEDS ORDERED: BUPIVACAINE (PF) 0.5% 30 ML VIAL SQ ONE (08:59)
[2021-06-01 09:35] VITALS: TEMP 96.8
--- NOTE | 2021-06-01 09:38 | P.OP ---
Date of Procedure: 06/01/21 Preoperative Diagnosis: Cholecystitis Postoperative Diagnosis: Cholelithiasis Hydropic gallbladder Cholecystitis Procedure(s) Performed: Laparoscopic cholecystectomy Anesthesia: MAC Surgeon: Dejuan Birmingham Estimated Blood Loss (ml): 5 Pathology: other Condition: stable Disposition: PACU Description of Procedure: The patient was placed on the operating table. The patient received a general endotracheal tube anesthesia. The patients abdomen was prepped and draped in the usual sterile fashion. Through an infraumbilical stab incision, the fascia of the anterior abdominal wall was grasped with a pair of Kochers and then the Veress needle was placed in the peritoneal cavity. Position of the Veress needle was confirmed with positive drop test. The abdomen was then insufflated. After adequate insufflation, the 10 mm trocar was placed in the peritoneal cavity. Following this the laparoscope was placed in the peritoneal cavity. The patient was placed in the head-up, right side up position and then a 5 mm trocar was placed in the right lateral and right subcostal position under direct visualization. A 8 mm trocar was placed in the epigastric position. The gallbladder was grasped in the fundus and infundibulum. Traction on the gallbladder was placed in the lateral and the cephalad positions. The triangle of Calot was visualized.. The cystic duct was bluntly dissected until the union of the cystic duct and common bile duct was seen. A critical view of safety was achieved. The cystic duct was then divided and sealed with the Harmonic scissors. A PDS Endoloop was then placed throughout the cystic duct stump. The cystic artery divided and sealed with the Harmonic scissors. The gallbladder was then removed from the liver bed using Harmonic scissors. The gallbladder was then extracted through the epigastric port site. Operative field was checked for any bleeding spots and Harmonic scissors was used to coagulate the liver bed. The abdomen was irrigated. The trocars were removed. The skin was closed using interrupted 3-0 Vicryl suture. Dermabond dressing were applied. The patient tolerated the procedure well.
[2021-06-01 13:03] VITALS: BP 120/78; PULSE 85; RESP 16
== END 2021-06-01 13:05 | disposition home or self-care (01) ==
LOC: OR 07:33
PROVIDERS: ATTEND Surgery
DX: K80.12 Calculus of gallbladder with acute and chronic cholecystitis without obstruction (principal); K82.1 Hydrops of gallbladder; J44.9 Chronic obstructive pulmonary disease, unspecified; K21.9 Gastro-esophageal reflux disease without esophagitis; F17.200 Nicotine dependence, unspecified, uncomplicated; Z79.1 Long term (current) use of non-steroidal anti-inflammatories (NSAID); Z88.0 Allergy status to penicillin; Z91.040 Latex allergy status
CPT/HCPCS: 47562; 88304; J2250; J1100; J2710; J0690; J2405; J2001; J3010; J1170; J1885; J0330; J2704; J1644

== ENCOUNTER 2021-06-08 17:46 | Emergency (ER) | payer MEDICARE, OTHER ==
[2021-06-08 18:12] VITALS: TEMP 97.7
[2021-06-08] MEDS ORDERED: PANTOPRAZOLE 40 MG/10 ML VIAL IVP STA (18:29)
--- NOTE | 2021-06-08 18:31 | ED ---
General Adult HPI - General Chief complaint: GI Bleed Stated complaint: post op GI bleed Time Seen by Provider: 06/08/21 18:18 Source: patient Mode of arrival: ambulatory Limitations: no limitations - History of Present Illness Initial comments: Dictation was produced using [employer] dictation software. please excuse any grammatical, word or spelling errors. Chief Complaint: 65-year-old male presents with 2 days of black and tarry stools History of Present Illness: 65-year-old female she presents to the emergency department for black and tarry stools. Patient recently had cholecystectomy performed 1 week ago. Since yesterday she's been having black and tarry stools. Patient denies any abdominal pain. She does not take any anticoagulation medications. The ROS documented in this emergency department record has been reviewed and confirmed by me. Those systems with pertinent positive or negative responses have been documented in the HPI. All other systems are other negative and/or noncontributory. PHYSICAL EXAM: General Impression: Alert and oriented x3, not in acute distress HEENT: Normocephalic atraumatic, extra-ocular movements intact, pupils equal and reactive to light bilaterally, mucous membranes moist. Cardiovascular: Heart regular rate and rhythm Chest: Able to complete full sentences, no retractions, no tachypnea Abdomen: abdomen soft, non-tender, non-distended, no organomegaly, surgical site is clean dry and intact Musculoskeletal: Pulses present and equal in all extremities, no peripheral edema Motor: no focal deficits noted Neurological: CN II-XII grossly intact, no focal motor or sensory deficits noted Skin: Intact with no visualized rashes Psych: Normal affect and mood Rectal exam: There is melanotic residue in the rectum ED course: 65-year-old female presents with black tarry stools for the last 2 days. Vital signs upon arrival are within acceptable limits. Patient given 40 mg of IV Protonix. Laboratory evaluation obtained. CBC unremarkable. Coag panel is negative. Metabolic panel shows sodium 131, bicarb 17 with gap of 12. Sightly just from some mild dehydration. Abelardo blood is negative. Patient observed in the emergency department for approximately 2 hours patient is reevaluated at bedside at 7:40 PM found to be in stable medical condition. At this point unlikely that patient had GI bleed. She'll be discharge. - Related Data Home Medications Medication Instructions Recorded Confirmed traZODone HCL [Desyrel] 200 mg PO HS 05/15/18 06/08/21 FLUoxetine HCL [PROzac] 40 mg PO BID 08/05/20 06/08/21 risperiDONE 3 mg PO HS 05/21/21 06/08/21 Ketorolac 0.5% Ophth Soln [Acular] 1 drops LEFT EYE BID 05/28/21 06/08/21 Moxifloxacin HCl [Moxifloxacin] 1 drop LEFT EYE QID 05/28/21 06/08/21 Naltrexone HCl [Revia] 50 mg PO DAILY 06/08/21 06/08/21 Previous Rx's Medication Instructions Recorded Acetaminophen Tab [Tylenol] 650 mg PO Q6H #30 tab 06/01/21 Docusate [Colace] 100 mg PO BID #20 capsule 06/01/21 Ibuprofen [Motrin] 600 mg PO Q6HR PRN #40 tab 06/01/21 Allergies Allergy/AdvReac Type Severity Reaction Status Date / Time aspirin Allergy Rash/Hives Verified 06/08/21 19:12 latex Allergy Rash/Hives Verified 06/08/21 19:12 Penicillins Allergy Rash/Hives Verified 06/08/21 19:12 Review of Systems ROS Statement: Those systems with pertinent positive or pertinent negative responses have been documented in the HPI. ROS Other: All systems not noted in ROS Statement are negative. Past Medical History Past Medical History: Asthma, COPD, GERD/Reflux Additional Past Medical History / Comment(s): abd. pain intermittently & diarrhea since April, back pain History of Any Multi-Drug Resistant Organisms: None Reported Past Surgical History: Back Surgery, Joint Replacement, Orthopedic Surgery Additional Past Surgical History / Comment(s): left knee replacement, back surg. x2, cervical fusion Past Anesthesia/Blood Transfusion Reactions: Previous Problems w/ Anesthesia Additional Past Anesthesia/Blood Transfusion Reaction / Comment(s): "woke up swinging after knee replacement" Past Psychological History: Anxiety, Depression Smoking Status: Current every day smoker, Heavy tobacco smoker Past Alcohol Use History: None Reported Past Drug Use History: None Reported - Past Family History Mother Family Medical History: Cancer General Exam Limitations: no limitations Course Vital Signs 06/08/21 06/08/21 06/08/21 18:07 18:21 19:27 Temperature 97.7 F Pulse Rate 83 95 85 Respiratory 16 18 16 Rate Blood Pressure 159/83 153/100 148/75 O2 Sat by Pulse 97 99 98 Oximetry Medical Decision Making - Lab Data Result diagrams: 06/08/21 18:42 06/08/21 18:42 Lab Results 06/08/21 06/08/21 06/08/21 Range/Units 18:42 18:42 18:42 WBC 8.1 (3.8-10.6) k/uL RBC 5.12 (3.80-5.40) m/uL Hgb 15.0 (11.4-16.0) gm/dL Hct 45.6 (34.0-46.0) % MCV 89.0 (80.0-100.0) fL MCH 29.4 (25.0-35.0) pg MCHC 33.0 (31.0-37.0) g/dL RDW 14.9 (11.5-15.5) % Plt Count 255 (150-450) k/uL MPV 8.0 Neutrophils % 70 % Lymphocytes % 18 % Monocytes % 7 % Eosinophils % 2 % Basophils % 1 % Neutrophils # 5.7 (1.3-7.7) k/uL Lymphocytes # 1.5 (1.0-4.8) k/uL Monocytes # 0.6 (0-1.0) k/uL Eosinophils # 0.2 (0-0.7) k/uL Basophils # 0.0 (0-0.2) k/uL PT 10.4 (9.0-12.0) sec INR 1.0 (<1.2) APTT 25.3 (22.0-30.0) sec Sodium 131 L (137-145) mmol/L Potassium 4.4 (3.5-5.1) mmol/L Chloride 102 (98-107) mmol/L Carbon Dioxide 17 L (22-30) mmol/L Anion Gap 12 mmol/L BUN 14 (7-17) mg/dL Creatinine 0.80 (0.52-1.04) mg/dL Est GFR (CKD-EPI)AfAm 88 (>60 ml/min/1.73 sqM) Est GFR (CKD-EPI)NonAf 77 (>60 ml/min/1.73 sqM) Glucose 111 H (74-99) mg/dL Calcium 9.2 (8.4-10.2) mg/dL Stool Occult Blood (Negative) Blood Type Blood Type Recheck Bld Type Recheck Status Antibody Screen Spec Expiration Date 06/08/21 06/08/21 Range/Units 18:42 18:42 WBC (3.8-10.6) k/uL RBC (3.80-5.40) m/uL Hgb (11.4-16.0) gm/dL Hct (34.0-46.0) % MCV (80.0-100.0) fL MCH (25.0-35.0) pg MCHC (31.0-37.0) g/dL RDW (11.5-15.5) % Plt Count (150-450) k/uL MPV Neutrophils % % Lymphocytes % % Monocytes % % Eosinophils % % Basophils % % Neutrophils # (1.3-7.7) k/uL Lymphocytes # (1.0-4.8) k/uL Monocytes # (0-1.0) k/uL Eosinophils # (0-0.7) k/uL Basophils # (0-0.2) k/uL PT (9.0-12.0) sec INR (<1.2) APTT (22.0-30.0) sec Sodium (137-145) mmol/L Potassium (3.5-5.1) mmol/L Chloride (98-107) mmol/L Carbon Dioxide (22-30) mmol/L Anion Gap mmol/L BUN (7-17) mg/dL Creatinine (0.52-1.04) mg/dL Est GFR (CKD-EPI)AfAm (>60 ml/min/1.73 sqM) Est GFR (CKD-EPI)NonAf (>60 ml/min/1.73 sqM) Glucose (74-99) mg/dL Calcium (8.4-10.2) mg/dL Stool Occult Blood Negative (Negative) Blood Type A Positive Blood Type Recheck No Previous Record Bld Type Recheck Status CABO Indicated Antibody Screen NEGATIVE Spec Expiration Date 06/11/2021 - 2341 Disposition Clinical Impression: Black tarry stools Disposition: HOME SELF-CARE Condition: Good Instructions (If sedation given, give patient instructions): Gastrointestinal Bleeding (ED) Is patient prescribed a controlled substance at d/c from ED?: No Referrals: Konrad Monsalve DO [Primary Care Provider] - 1-2 days
[2021-06-08 18:54] LABS: Basophils % (A) 1 %; Eosinophils # (A) 0.2 k/uL (0-0.7); Eosinophils % (A) 2 %; HCT 45.6 % (34.0-46.0); Lymphocytes # (A) 1.5 k/uL (1.0-4.8); Lymphocytes % (A) 18 %; MCH 29.4 pg (25.0-35.0); Monocytes # (A) 0.6 k/uL (0-1.0); Monocytes % (A) 7 %; Neutrophils # (A) 5.7 k/uL (1.3-7.7); Neutrophils % (A) 70 %; Platelet Count 255 k/uL (150-450); RBC 5.12 m/uL (3.80-5.40); RDW 14.9 % (11.5-15.5); WBC 8.1 k/uL (3.8-10.6)
[2021-06-08 19:01] LABS: Partial Thromboplastin Time 25.3 sec (22.0-30.0); Prothrombin Time 10.4 sec (9.0-12.0)
[2021-06-08 19:20] LABS: Calcium 9.2 mg/dL (8.4-10.2); Potassium 4.4 mmol/L (3.5-5.1)
[2021-06-08 19:28] VITALS: BP 148/75; PULSE 85; RESP 16
== END 2021-06-08 19:56 | disposition home or self-care (01) ==
LOC: EC 17:46
DX: K92.1 Melena (principal); K91.841 Postprocedural hemorrhage of a digestive system organ or structure following other procedure; E86.0 Dehydration; F41.9 Anxiety disorder, unspecified; F32.9 Major depressive disorder, single episode, unspecified; J44.9 Chronic obstructive pulmonary disease, unspecified; K21.9 Gastro-esophageal reflux disease without esophagitis; F17.200 Nicotine dependence, unspecified, uncomplicated; Z90.49 Acquired absence of other specified parts of digestive tract; Z88.6 Allergy status to analgesic agent; Z88.0 Allergy status to penicillin; Z91.040 Latex allergy status; Z96.652 Presence of left artificial knee joint
CPT/HCPCS: 99284; 96374; 36415; 86900; 86901; 80048; 85025; 85610; 85730; 86850; 82272; C9113

== ENCOUNTER → 2024-04-05 | Outpatient (CLI) | payer MEDICARE, OTHER | END | disposition home or self-care (01) | LOC: RADMAMWWP 11:37 | PROVIDERS: ATTEND Family Medicine | DX: Z12.31 Encounter for screening mammogram for malignant neoplasm of breast (principal) ==

== ENCOUNTER 2025-05-09 20:43 | Emergency (ER) | payer MEDICARE, OTHER ==
[2025-05-09 20:48] VITALS: TEMP 98.1
--- NOTE | 2025-05-09 21:18 | XR ---
EXAMINATION TYPE: XR knee complete RT DATE OF EXAM: 05/09/2025 9:12 PM INDICATION: Patient age:Female; 69 years old; Reason for study: Pain; PHH. pain, fall COMPARISON: None. TECHNIQUE: The Right knee(s) was examined in Frontal, lateral and oblique projections. FINDINGS: No evidence of any acute osseous pathology, soft tissue swelling, or joint effusion is no jason. No significant joint space narrowing. IMPRESSION: No acute osseous pathology. [facility], , 05/09/2025 9:16 PM
--- NOTE | 2025-05-09 22:29 | ED ---
Lower Extremity Injury HPI - General Chief Complaint: Extremity Injury, Lower Stated Complaint: Fall-R Leg Pain Time Seen by Provider: 05/09/25 20:58 Source: EMS, RN notes reviewed Mode of arrival: EMS - History of Present Illness MD Complaint: knee injury Onset/Timin -: hour(s) Injury: Knee: Right Type of Injury: blunt Place: home Severity scale (1-10): 4 Improves With: NSAID, immobilization, rest Worsens With: weight bearing, movement, palpation Context: fall Treatments Prior to Arrival: NSAIDS - Related Data Home Medications Medication Instructions Recorded Confirmed traZODone HCL [Desyrel] 200 mg PO HS 05/15/18 06/08/21 FLUoxetine HCL [PROzac] 40 mg PO BID 08/05/20 06/08/21 risperiDONE 3 mg PO HS 05/21/21 06/08/21 Ketorolac 0.5% Ophth Soln [Acular] 1 drops LEFT EYE BID 05/28/21 06/08/21 Moxifloxacin HCl [Moxifloxacin] 1 drop LEFT EYE QID 05/28/21 06/08/21 Naltrexone HCl [Revia] 50 mg PO DAILY 06/08/21 06/08/21 Previous Rx's Medication Instructions Recorded Acetaminophen Tab [Tylenol] 650 mg PO Q6H #30 tab 06/01/21 Docusate [Colace] 100 mg PO BID #20 capsule 06/01/21 Ibuprofen [Motrin] 600 mg PO Q6HR PRN #40 tab 06/01/21 Ibuprofen [Motrin] 800 mg PO Q8HR PRN #20 tab 05/09/25 Allergies Allergy/AdvReac Type Severity Reaction Status Date / Time aspirin Allergy Rash/Hives Verified 05/09/25 20:47 latex Allergy Rash/Hives Verified 05/09/25 20:47 Penicillins Allergy Rash/Hives Verified 05/09/25 20:47 Review of Systems ROS Statement: Those systems with pertinent positive or pertinent negative responses have been documented in the HPI. ROS Other: All systems not noted in ROS Statement are negative. Past Medical History Past Medical History: Asthma, COPD, GERD/Reflux Additional Past Medical History / Comment(s): abd. pain intermittently & diarrhea since April, back pain History of Any Multi-Drug Resistant Organisms: None Reported Past Surgical History: Back Surgery, Joint Replacement, Orthopedic Surgery Additional Past Surgical History / Comment(s): left knee replacement, back surg. x2, cervical fusion Past Anesthesia/Blood Transfusion Reactions: Previous Problems w/ Anesthesia Additional Past Anesthesia/Blood Transfusion Reaction / Comment(s): "woke up swinging after knee replacement" Past Psychological History: Anxiety, Depression Smoking Status: Current every day smoker, Heavy tobacco smoker Past Alcohol Use History: None Reported Past Drug Use History: None Reported - Past Family History Mother Family Medical History: Cancer General Exam General appearance: alert, in no apparent distress Head exam: Present: atraumatic, normocephalic, normal inspection Eye exam: Present: normal appearance, PERRL, EOMI. Absent: scleral icterus, conjunctival injection, periorbital swelling ENT exam: Present: normal exam, mucous membranes moist Neck exam: Present: normal inspection. Absent: tenderness, meningismus, lymphadenopathy Respiratory exam: Present: normal lung sounds bilaterally. Absent: respiratory distress, wheezes, rales, rhonchi, stridor Cardiovascular Exam: Present: regular rate, normal rhythm, normal heart sounds. Absent: systolic murmur, diastolic murmur, rubs, gallop, clicks GI/Abdominal exam: Present: soft, normal bowel sounds. Absent: distended, tenderness, guarding, rebound, rigid Extremities exam: Present: full ROM, tenderness (Positive right LCL insertion point tenderness. Negative patellar, medial, popliteal tenderness), normal capillary refill, other (Negative Oral's, varus/valgus, Noam. RLE distal neurovascular and motor function intact. Posterior tibialis pulse +2. Left TKA noted). Absent: pedal edema, joint swelling, calf tenderness Back exam: Present: normal inspection Neurological exam: Present: alert, oriented X3, CN II-XII intact Psychiatric exam: Present: normal affect, normal mood Skin exam: Present: warm, dry, intact, normal color. Absent: rash Course Vital Signs 05/09/25 20:44 Temperature 98.1 F Pulse Rate 123 H Respiratory 18 Rate Blood Pressure 152/85 O2 Sat by Pulse 94 L Oximetry Medical Decision Making - Medical Decision Making Was pt. sent in by a medical professional or institution (, PA, WASTE WATER OPERATOR, urgent care, hospital, or longterm...) When possible be specific @ -[No] Did you speak to anyone other than the patient for history (EMS, parent, family, police, friend...)? What history was obtained from this source @ -[No] Did you review nursing and triage notes (agree or disagree)? Why? @ -[I reviewed and agree with nursing and triage notes] Were old charts reviewed (outside hosp., previous admission, EMS record, old EKG, old radiological studies, urgent care reports/EKG's, longterm records)? Report findings @ -[No old charts were reviewed] Differential Diagnosis (chest pain, altered mental status, abdominal pain women, abdominal pain men, vaginal bleeding, weakness, fever, dyspnea, syncope, headache, dizziness, GI bleed, back pain, seizure, CVA, palpatations, mental health, musculoskeletal)? @ -Differential Musculoskeletal Muscular strain, contusion, ligament sprain, fracture, arthritis, septic arthritis, bursitis, cellulitis, muscle spasm, nerve compression, DVT, arterial occlusion, herpes zoster, electrolyte abnormality, tumor.... This is not meant to be in all inclusive list EKG interpreted by me (3pts min.). @ -Not done X-rays interpreted by me (1pt min.). @ -[None done] CT interpreted by me (1pt min.). @ -[None done] U/S interpreted by me (1pt. min.). @ -[None done] What testing was considered but not performed or refused? (CT, X-rays, U/S, labs)? Why? @ -[None] What meds were considered but not given or refused? Why? @ -[None] Did you discuss the management of the patient with other professionals (professionals i.e. , PA, WASTE WATER OPERATOR, lab, RT, psych nurse, healthcare social worker, global account manager, teacher, freedom of information officer, case specialist)? Give summary @ -[No] Was smoking cessation discussed for >3mins.? @ -[No] Was critical care preformed (if so, how long)? @ -[No] Were there social determinants of health that impacted care today? How? (Homelessness, low income, unemployed, alcoholism, drug addiction, transportation, low edu. Level, literacy, decrease access to med. care, group home, rehab)? @ -[No] Was there de-escalation of care discussed even if they declined (Discuss DNR or withdrawal of care, Hospice)? DNR status @ -[No] What co-morbidities impacted this encounter? (DM, HTN, Smoking, COPD, CAD, Cancer, CVA, ARF, Chemo, Hep., AIDS, mental health diagnosis, sleep apnea, morbid obesity)? @ -[None] Was patient admitted / discharged? Hospital course, mention meds given and route, prescriptions, significant lab abnormalities, going to OR and other pertinent info. @ -[hospital course] Undiagnosed new problem with uncertain prognosis? @ -[No] Drug Therapy requiring intensive monitoring for toxicity (Heparin, Nitro, Insulin, Cardizem)? @ -[No] Were any procedures done? @ -Angel wrap applied to patient's right knee Diagnosis/symptom? @ -Knee contusion Acute, or Chronic, or Acute on Chronic? @ -Acute Uncomplicated (without systemic symptoms) or Complicated (systemic symptoms)? @ -Uncomplicated Side effects of treatment? @ -[No] Exacerbation, Progression, or Severe Exacerbation? @ -[No] Poses a threat to life or bodily function? How? (Chest pain, USA, MD, pneumonia, PE, COPD, DKA, ARF, appy, cholecystitis, CVA, Diverticulitis, Homicidal, Suicidal, threat to staff... and all critical care pts) @ -[No] Disposition Clinical Impression: Contusion of right knee Disposition: HOME SELF-CARE Condition: Good Instructions (If sedation given, give patient instructions): Knee Pain (ED) Additional Instructions: Alternate Tylenol/Motrin every 4 hours for pain. Cold compress for 10 minutes up to 4 times daily. Compression dressing and elevation for pain relief. Follow-up with PCP/orthopedics regarding any ongoing symptoms. Prescriptions: Ibuprofen [Motrin] 800 mg PO Q8HR PRN #20 tab PRN Reason: Pain Is patient prescribed a controlled substance at d/c from ED?: No Referrals: Konrad Monsalve DO [Primary Care Provider] - 1-2 days [facility] [Provider Group] - 1-2 days Time of Disposition: 22:29
[2025-05-09 23:08] VITALS: BP 132/72; PULSE 120; RESP 20
== END 2025-05-09 23:02 | disposition home or self-care (01) ==
LOC: EC 20:43
DX: S80.01XA Contusion of right knee, initial encounter (principal); F17.200 Nicotine dependence, unspecified, uncomplicated; Z88.0 Allergy status to penicillin; Z91.040 Latex allergy status; Z88.6 Allergy status to analgesic agent; W19.XXXA Unspecified fall, initial encounter; Y92.009 Unspecified place in unspecified non-institutional (private) residence as the place of occurrence of the external cause
CPT/HCPCS: 99283